=== PATIENT | female | born 1990 | race Caucasian/White ===

== ENCOUNTER → 2016-10-11 | Outpatient (CLI) | payer OTHER ==
[2016-10-12 06:47] LABS: Cardiolipin Ab IgG 13.5 GPL (<15); Cardiolipin Ab IgM 11.7 MPL (<12.5)
[2016-10-12 11:54] LABS: Protein C (Activity) 105 % (70 - 130)
[2016-10-13 13:34] LABS: Free Protein S Antigen 82 % (50 - 147)
[2016-10-13 13:56] LABS: MTHFR Genotyping(C677T/A1298C) Normal Genotype; Prothrombin 20210 G/A Mutation Normal Genotype
== END | disposition home or self-care (01) ==
LOC: LABWHC1 12:07
PROVIDERS: ATTEND Obstetrics & Gynecology
DX: N96 Recurrent pregnancy loss (principal)
CPT/HCPCS: 36415; 81240; 81241; 81291; 85300; 85303; 85306; 86147; 88230; 88262

== ENCOUNTER → 2017-07-17 | Outpatient (CLI) | payer OTHER ==
[2017-07-18 01:00] LABS: Varicella zoster IgG Interp NEGATIVE (NEGATIVE); Varicella zoster IgG Result <0.2 AI
[2017-07-18 01:32] LABS: Prolactin 8.2 ng/mL (2.8-29.2)
[2017-07-18 05:48] LABS: Varicella IgM Antibody 1.84 INDEX (<=0.90)
[2017-07-18 12:40] LABS: Anti-Mullerian Hormone 5.54 ng/mL (0.76 - 11.34)
== END | disposition home or self-care (01) ==
LOC: LABWHC1 15:29
PROVIDERS: ATTEND Obstetrics & Gynecology Reproductive Endocrinology
DX: Z01.812 Encounter for preprocedural laboratory examination (principal)
CPT/HCPCS: 36415; 83520; 84146; 84443; 86762; 86787; 86850; 86900; 86901

== ENCOUNTER 2017-10-13 06:32 | Emergency (ER) | payer OTHER ==
[2017-10-13 06:49] VITALS: RESP 18
[2017-10-13 07:19] LABS: Appearance,Urine Clear (Clear); Bacteria,Urine Rare /hpf; Bilirubin,Urine Negative (Negative); Blood,Urine Moderate (Negative); Color,Urine Yellow; Glucose,Urine (UA) Negative (Negative); Ketones,Urine Negative (Negative); Leukocyte Esterase,Urine Negative (Negative); Mucus,Urine Rare /hpf; Nitrite,Urine Negative (Negative); Protein,Urine Negative (Negative); RBC,Urine 46 /hpf (0-5); Specific Gravity,Urine 1.016 (1.001-1.035); Squamous Epithelial Cell,Urine 9 /hpf (0-4); Urobilinogen,Urine <2.0 mg/dL (<2.0); WBC,Urine 1 /hpf (0-5)
--- NOTE | 2017-10-13 08:18 | ED ---
Female Urogenital HPI - General Chief complaint: Vaginal Bleeding Stated complaint: Vaginal Bleeding 4 wks Preg Time Seen by Provider: 10/13/17 07:40 Source: patient, RN notes reviewed Mode of arrival: ambulatory Limitations: no limitations - History of Present Illness Initial comments: This a 27-year-old female with a prior history of miscarriage who states she started having vaginal bleeding this morning which started with some small amount of pink blood and ended with dark blood. She does have a prior history of miscarriage she states her last menstrual period was September 09 of this year. She did test +2 days ago she states for . She denies any dizziness headache nausea vomiting abdominal pain. No other complaints at this time. She is not aware what her blood type or Rh is. MD Complaint: vaginal bleeding Last Menstrual Period: 09/09/17 - Related Data Home Medications Medication Instructions Recorded Confirmed Albuterol Inhaler [Ventolin 1 - 2 puff INHALATION RT-Q6H PRN 08/14/15 10/13/17 Inhaler] Beclomethasone Dipropionate [Qvar 160 mcg INHALATION RT-BID 08/14/15 10/13/17 80 mcg/puff] Cetirizine HCl [Zyrtec] 10 mg PO DAILY 08/14/15 10/13/17 Acetaminophen [Tylenol] 500 mg PO Q4-6H PRN 10/29/15 10/13/17 Montelukast [Singulair] 10 mg PO DAILY 10/29/15 10/13/17 Baclofen 10 mg PO TID 12/04/15 10/13/17 ALPRAZolam [Xanax] 0.25 mg PO BID 10/13/17 10/13/17 Gabapentin [Neurontin] 300 mg PO TID 10/13/17 10/13/17 Allergies Allergy/AdvReac Type Severity Reaction Status Date / Time No Known Allergies Allergy Verified 10/13/17 06:49 Review of Systems ROS Statement: Those systems with pertinent positive or pertinent negative responses have been documented in the HPI. ROS Other: All systems not noted in ROS Statement are negative. Past Medical History Past Medical History: Fibromyalgia, Seizure Disorder Additional Past Medical History / Comment(s): chronic back pain, migraines, History of Any Multi-Drug Resistant Organisms: None Reported Past Surgical History: Section, Tonsillectomy Additional Past Surgical History / Comment(s): ACD 06/12/2017, fusion of c5c6 Past Psychological History: ADD/ADHD, Anxiety, Bipolar, Depression Smoking Status: Never smoker Past Alcohol Use History: Rare Past Drug Use History: None Reported General Exam - General Exam Comments Initial Comments: this a well-developed well-nourished awake alert oriented 3 female Limitations: no limitations General appearance: alert, in no apparent distress Head exam: Present: atraumatic, normocephalic, normal inspection Eye exam: Present: normal appearance, PERRL, EOMI. Absent: scleral icterus, conjunctival injection, periorbital swelling ENT exam: Present: normal exam, mucous membranes moist Neck exam: Present: normal inspection. Absent: tenderness, meningismus, lymphadenopathy Respiratory exam: Present: normal lung sounds bilaterally. Absent: respiratory distress, wheezes, rales, rhonchi, stridor Cardiovascular Exam: Present: regular rate, normal rhythm, normal heart sounds. Absent: systolic murmur, diastolic murmur, rubs, gallop, clicks GI/Abdominal exam: Present: soft, normal bowel sounds. Absent: distended, tenderness, guarding, rebound, rigid Extremities exam: Present: normal inspection, full ROM, normal capillary refill. Absent: tenderness, pedal edema, joint swelling, calf tenderness Back exam: Present: normal inspection Neurological exam: Present: alert, oriented X3, CN II-XII intact Psychiatric exam: Present: normal affect, normal mood Skin exam: Present: warm, dry, intact, normal color. Absent: rash Course Vital Signs 10/13/17 06:44 Temperature 98.8 F Pulse Rate 92 Respiratory 18 Rate Blood Pressure 104/66 O2 Sat by Pulse 100 Oximetry Medical Decision Making - Medical Decision Making I did discuss findings with the patient and her significant other. Patient does have a minimally elevated hCG number. At this time a pelvic exam is not indicated. Patient has had 3 prior miscarriages she has had 2 live births. We did discuss the findings she will follow-up with her doctor and 2-3 days for a repeat beta hCG she is in agreement with this. - Lab Data Lab Results 10/13/17 10/13/17 10/13/17 Range/Units 06:51 06:51 06:55 HCG, Quant 11.5 mIU/mL Urine Color Yellow Urine Appearance Clear (Clear) Urine pH 6.0 (5.0-8.0) Ur Specific [place] 1.016 (1.001-1.035) Urine Protein Negative (Negative) Urine Glucose (UA) Negative (Negative) Urine Ketones Negative (Negative) Urine Blood Moderate H (Negative) Urine Nitrite Negative (Negative) Urine Bilirubin Negative (Negative) Urine Urobilinogen <2.0 (<2.0) mg/dL Ur Leukocyte Esterase Negative (Negative) Urine RBC 46 H (0-5) /hpf Urine WBC 1 (0-5) /hpf Ur Squamous Epith Cells 9 H (0-4) /hpf Urine Bacteria Rare H (None) /hpf Urine Mucus Rare H (None) /hpf Blood Type O Positive Blood Type Recheck No Disposition Clinical Impression: Threatened , Vaginal bleeding Disposition: HOME SELF-CARE Condition: Good Instructions: Threatened Miscarriage (ED), First Trimester Vaginal Bleed (ED) Referrals: Jackelyn Gonsalez MD [Primary Care Provider] - 1-2 days
[2017-10-13 09:54] VITALS: BP 98/69; PULSE 80; TEMP 98.9
== END 2017-10-13 09:52 | disposition home or self-care (01) ==
LOC: EC 06:32
DX: O20.0 Threatened abortion (principal); O99.351 Diseases of the nervous system complicating pregnancy, first trimester; G40.909 Epilepsy, unspecified, not intractable, without status epilepticus; O99.89 Other specified diseases and conditions complicating pregnancy, childbirth and the puerperium; M79.7 Fibromyalgia; G89.29 Other chronic pain; O99.341 Other mental disorders complicating pregnancy, first trimester; F41.9 Anxiety disorder, unspecified; Z79.51 Long term (current) use of inhaled steroids; Z79.899 Other long term (current) drug therapy; Z98.890 Other specified postprocedural states; Z3A.01 Less than 8 weeks gestation of pregnancy
CPT/HCPCS: 36415; 81001; 84702; 86900; 86901; 99284

== ENCOUNTER 2017-10-14 10:47 | Emergency (ER) | payer OTHER ==
[2017-10-14 10:51] VITALS: BP 109/77; PULSE 90; RESP 15; TEMP 98.1
--- NOTE | 2017-10-14 11:05 | ED ---
General Adult HPI - General Chief complaint: Vaginal Bleeding Stated complaint: UTI Time Seen by Provider: 10/14/17 10:53 Source: patient, RN notes reviewed Mode of arrival: ambulatory Limitations: no limitations - History of Present Illness Initial comments: 27-year-old female presents for vaginal bleeding in . She was here for this yesterday. She went to [facility] today because she was having some burning with urination and they started her on antibiotic. They were concerned because she still is having bleeding in so they did not feels if they could evaluate her fully there so they sent her here. Her hCG from yesterday was 11.5. She has a prescription for repeat blood work tomorrow. She states she does not know why she is here she would like to go home. She's not having any changes from yesterday. She just came because [facility] told her that she was supposed to. She does not want any workup she states she'll follow-up with her [employer] she states she'll follow-up with the blood work anything changes she'll come back should like to go home. She denies any abdominal pain or cramping. She states the bleeding is light spotting.Patient denies any recent fever, chills, shortness of breath, chest pain, back pain, abdominal pain, nausea vomiting, numbness or tingling, hematuria, constipation or diarrhea, headaches or visual changes, or any other current symptoms. - Related Data Home Medications Medication Instructions Recorded Confirmed Pnv,Calcium 72/Iron/Folic Acid 1 tab PO DAILY 10/14/17 10/14/17 [ Plus Tablet] Allergies Allergy/AdvReac Type Severity Reaction Status Date / Time No Known Allergies Allergy Verified 10/14/17 10:57 Review of Systems ROS Statement: Those systems with pertinent positive or pertinent negative responses have been documented in the HPI. ROS Other: All systems not noted in ROS Statement are negative. Past Medical History Past Medical History: Fibromyalgia, Seizure Disorder Additional Past Medical History / Comment(s): chronic back pain, migraines, History of Any Multi-Drug Resistant Organisms: None Reported Past Surgical History: Section, Tonsillectomy Additional Past Surgical History / Comment(s): ACD 06/12/2017, fusion of c5c6 Past Psychological History: ADD/ADHD, Anxiety, Bipolar, Depression Smoking Status: Never smoker Past Alcohol Use History: Rare Past Drug Use History: None Reported General Exam Limitations: no limitations General appearance: alert, in no apparent distress Neck exam: Present: normal inspection. Absent: tenderness, meningismus, lymphadenopathy Respiratory exam: Present: normal lung sounds bilaterally. Absent: respiratory distress, wheezes, rales, rhonchi, stridor Cardiovascular Exam: Present: regular rate, normal rhythm, normal heart sounds. Absent: systolic murmur, diastolic murmur, rubs, gallop, clicks GI/Abdominal exam: Present: soft, normal bowel sounds. Absent: distended, tenderness, guarding, rebound, rigid Neurological exam: Present: alert, oriented X3 Psychiatric exam: Present: normal affect, normal mood Skin exam: Present: warm, dry, intact, normal color. Absent: rash Course Vital Signs 10/14/17 10:49 Temperature 98.1 F Pulse Rate 90 Respiratory 15 Rate Blood Pressure 109/77 O2 Sat by Pulse 100 Oximetry Medical Decision Making - Medical Decision Making 27-year-old female presents for vaginal bleeding in . We saw the patient yesterday with an hCG of 11.5 and she is positive Rh. At this time the patient is not requesting any workup. She is just sent here because [facility] told her to come. She had he has an antibiotic for UTI that she was diagnosed with [facility] today. At this time we will discharge patient home. We discussed continued follow-up with her doctor. We discussed return parameters all questions. Patient stated that she understood and she is agreement this plan. All questions have been answered. She will be discharged. Disposition Clinical Impression: Vaginal bleeding Disposition: HOME SELF-CARE Condition: Stable Instructions: Threatened Miscarriage (ED) Additional Instructions: Please use medication as discussed. Please follow up with family doctor if symptoms have not improved over the next two days. Please return to the emergency room if your symptoms increase or worsen or for any other concerns. Referrals: Jackelyn Gonsalez MD [Primary Care Provider] - 1-2 days Time of Disposition: 11:05
== END 2017-10-14 11:10 | disposition home or self-care (01) ==
LOC: EC 10:47
DX: O20.9 Hemorrhage in early pregnancy, unspecified (principal); Z79.899 Other long term (current) drug therapy; Z3A.00 Weeks of gestation of pregnancy not specified
CPT/HCPCS: 99283

== ENCOUNTER → 2017-10-15 | Outpatient (CLI) | payer OTHER | END | disposition home or self-care (01) | LOC: LABWHC1 08:28 | PROVIDERS: ATTEND Physician Assistant | DX: Z34.90 Encounter for supervision of normal pregnancy, unspecified, unspecified trimester (principal); Z3A.00 Weeks of gestation of pregnancy not specified | CPT/HCPCS: 36415; 84702 ==

== ENCOUNTER 2018-04-21 06:57 | Emergency (ER) | payer OTHER ==
--- NOTE | 2018-04-21 07:51 | ED ---
General Adult HPI - General Chief complaint: Abdominal Pain Stated complaint: abd pain, 7 wks preg Time Seen by Provider: 04/21/18 07:10 Source: patient, family, RN notes reviewed Mode of arrival: ambulatory Limitations: no limitations - History of Present Illness Initial comments: This is a 28-year-old female who presents emergency Department stating she is 7 weeks . Patient complains of suprapubic abdominal pain. Patient states she is on the right if she lays on her right but when she lays on her left it seems to switch over to the left side. Patient also was noticed a little bit of pressure when she tries to urinate. Patient denies any dysuria patient denies any hematuria. Patient denies any fever chills. Patient denies any vomiting or diarrhea. Patient states palpating her abdomen does not really cause much pain. Patient denies any back pain. Patient denies any vaginal bleeding or discharge. - Related Data Home Medications Medication Instructions Recorded Confirmed Baclofen [Lioresal] 10 mg PO TID 11/21/17 04/21/18 busPIRone HCL 5 mg PO BID 11/21/17 04/21/18 Allergies Allergy/AdvReac Type Severity Reaction Status Date / Time No Known Allergies Allergy Verified 04/21/18 07:12 Review of Systems ROS Statement: Those systems with pertinent positive or pertinent negative responses have been documented in the HPI. ROS Other: All systems not noted in ROS Statement are negative. Past Medical History Past Medical History: Fibromyalgia, Seizure Disorder Additional Past Medical History / Comment(s): chronic back pain, migraines, History of Any Multi-Drug Resistant Organisms: None Reported Past Surgical History: Back Surgery, Section, Tonsillectomy Additional Past Surgical History / Comment(s): ACD 06/12/2017, fusion of c5c6 Past Anesthesia/Blood Transfusion Reactions: No Reported Reaction Past Psychological History: ADD/ADHD, Anxiety, Bipolar, Depression Smoking Status: Never smoker Past Alcohol Use History: None Reported Past Drug Use History: None Reported - Past Family History Mother History Unknown: Yes Additional Family Medical History / Comment(s): PT ADOPTED General Exam - General Exam Comments Initial Comments: GENERAL: Patient is well-developed and well-nourished. Patient is nontoxic and well- hydrated and is in no acute distress. ENT: Neck is soft and supple. No significant lymphadenopathy is noted. Oropharynx is clear. Moist mucous membranes. Neck has full range of motion without eliciting any pain. EYES: The sclera were anicteric and conjunctiva were pink and moist. Extraocular movements were intact and pupils were equal round and reactive to light. Eyelids were unremarkable. PULMONARY: Unlabored respirations. Good breath sounds bilaterally. No audible rales rhonchi or wheezing was noted. CARDIOVASCULAR: There is a regular rate and rhythm without any murmurs gallops or rubs. ABDOMEN: Soft and nontender with normal bowel sounds. No palpable organomegaly was noted. There is no palpable pulsatile mass. SKIN: Skin is clear with no lesions or rashes and otherwise unremarkable. NEUROLOGIC: Patient is alert and oriented x3. Cranial nerves II through XII are grossly intact. Motor and sensory are also intact. Normal speech, volume and content. Symmetrical smile. MUSCULOSKELETAL: Normal extremities with adequate strength and full range of motion. No lower extremity swelling or edema. No calf tenderness. LYMPHATICS: No significant lymphadenopathy is noted PSYCHIATRIC: Normal psychiatric evaluation. Limitations: no limitations Course Vital Signs 04/21/18 04/21/18 04/21/18 07:08 09:46 10:10 Temperature 98.4 F 99.7 F H Pulse Rate 100 90 79 Respiratory 20 18 18 Rate Blood Pressure 108/73 99/67 98/61 O2 Sat by Pulse 99 98 99 Oximetry Medical Decision Making - Medical Decision Making Ultrasound showed a 7 week 1 day intrauterine - Lab Data Result diagrams: 04/21/18 07:58 04/21/18 07:58 Lab Results 04/21/18 04/21/18 04/21/18 Range/Units 07:58 07:58 07:58 WBC 6.3 (3.8-10.6) k/uL RBC 3.74 L (3.80-5.40) m/uL Hgb 12.3 (11.4-16.0) gm/dL Hct 35.4 (34.0-46.0) % MCV 94.7 (80.0-100.0) fL MCH 32.8 (25.0-35.0) pg MCHC 34.7 (31.0-37.0) g/dL RDW 12.4 (11.5-15.5) % Plt Count 278 (150-450) k/uL Neutrophils % 57 % Lymphocytes % 35 % Monocytes % 4 % Eosinophils % 2 % Basophils % 1 % Neutrophils # 3.6 (1.3-7.7) k/uL Lymphocytes # 2.2 (1.0-4.8) k/uL Monocytes # 0.2 (0-1.0) k/uL Eosinophils # 0.1 (0-0.7) k/uL Basophils # 0.0 (0-0.2) k/uL Sodium 138 (137-145) mmol/L Potassium 4.5 (3.5-5.1) mmol/L Chloride 104 (98-107) mmol/L Carbon Dioxide 26 (22-30) mmol/L Anion Gap 8 mmol/L BUN 8 (7-17) mg/dL Creatinine 0.59 (0.52-1.04) mg/dL Est GFR (CKD-EPI)AfAm >90 (>60 ml/min/1.73 sqM) Est GFR (CKD-EPI)NonAf >90 (>60 ml/min/1.73 sqM) Glucose 92 (74-99) mg/dL Calcium 9.3 (8.4-10.2) mg/dL Total Bilirubin 0.3 (0.2-1.3) mg/dL AST 16 (14-36) U/L ALT 21 (9-52) U/L Alkaline Phosphatase 58 (38-126) U/L Total Protein 6.8 (6.3-8.2) g/dL Albumin 3.9 (3.5-5.0) g/dL Amylase 40 (30-110) U/L Lipase 39 (23-300) U/L HCG, Quant 632909.0 mIU/mL Urine Color Yellow Urine Appearance Cloudy H (Clear) Urine pH 6.5 (5.0-8.0) Ur Specific [place] 1.017 (1.001-1.035) Urine Protein Trace H (Negative) Urine Glucose (UA) Negative (Negative) Urine Ketones Negative (Negative) Urine Blood Negative (Negative) Urine Nitrite Negative (Negative) Urine Bilirubin Negative (Negative) Urine Urobilinogen <2.0 (<2.0) mg/dL Ur Leukocyte Esterase Moderate H (Negative) Urine RBC 1 (0-5) /hpf Urine WBC 4 (0-5) /hpf Ur Squamous Epith Cells 9 H (0-4) /hpf Urine Bacteria Occasional H (None) /hpf Urine Mucus Rare H (None) /hpf Disposition Clinical Impression: Intrauterine Disposition: HOME SELF-CARE Condition: Good Instructions: (ED) Is patient prescribed a controlled substance at d/c from ED?: No Referrals: Jackelyn Gonsalez MD [Primary Care Provider] - 1-2 days Time of Disposition: 10:00
[2018-04-21 08:15] LABS: Basophils % (A) 1 %; Eosinophils # (A) 0.1 k/uL (0-0.7); Eosinophils % (A) 2 %; HCT 35.4 % (34.0-46.0); HGB 12.3 gm/dL (11.4-16.0); Lymphocytes # (A) 2.2 k/uL (1.0-4.8); Lymphocytes % (A) 35 %; MCH 32.8 pg (25.0-35.0); MCHC 34.7 g/dL (31.0-37.0); MCV 94.7 fL (80.0-100.0); Mean Platelet Volume 6.8; Monocytes # (A) 0.2 k/uL (0-1.0); Monocytes % (A) 4 %; Neutrophils # (A) 3.6 k/uL (1.3-7.7); Neutrophils % (A) 57 %; Platelet Count 278 k/uL (150-450); RBC 3.74 m/uL (3.80-5.40); RDW 12.4 % (11.5-15.5); WBC 6.3 k/uL (3.8-10.6)
[2018-04-21 08:22] LABS: Appearance,Urine Cloudy (Clear); Bacteria,Urine Occasional /hpf; Bilirubin,Urine Negative (Negative); Blood,Urine Negative (Negative); Color,Urine Yellow; Glucose,Urine (UA) Negative (Negative); Ketones,Urine Negative (Negative); Leukocyte Esterase,Urine Moderate (Negative); Mucus,Urine Rare /hpf; Nitrite,Urine Negative (Negative); PH, Urine 6.5 (5.0-8.0); Protein,Urine Trace (Negative); RBC,Urine 1 /hpf (0-5); Specific Gravity,Urine 1.017 (1.001-1.035); Squamous Epithelial Cell,Urine 9 /hpf (0-4); Urobilinogen,Urine <2.0 mg/dL (<2.0); WBC,Urine 4 /hpf (0-5)
[2018-04-21 08:31] LABS: ALT 21 U/L (9-52); AST 16 U/L (14-36); Albumin 3.9 g/dL (3.5-5.0); Alkaline Phosphatase 58 U/L (38-126); Amylase 40 U/L (30-110); Anion Gap 8 mmol/L; Blood Urea Nitrogen 8 mg/dL (7-17); Calcium 9.3 mg/dL (8.4-10.2); Carbon Dioxide 26 mmol/L (22-30); Chloride 104 mmol/L (98-107); Glucose 92 mg/dL (74-99); Lipase 39 U/L (23-300); Potassium 4.5 mmol/L (3.5-5.1); Sodium 138 mmol/L (137-145); Total Bilirubin 0.3 mg/dL (0.2-1.3); Total Protein 6.8 g/dL (6.3-8.2)
[2018-04-21 09:47] VITALS: RESP 18
--- NOTE | 2018-04-21 09:48 | US ---
EXAMINATION TYPE: Ultrasound OB <= 14 week fetus DATE OF EXAM: 11/20/17 COMPARISON: NONE CLINICAL HISTORY: 28-year-old female Pain. Pelvic pain worsening EXAM PERFORMED: OBTA, patient did not want TV approach FINDINGS: EXAM MEASUREMENTS: GESTATIONAL AGE / DATING Physician Established: Not yet established Dates by LMP: (7 weeks/1 days) EDC: 12/07/2018 Dates by First Scan: No previous this is first scan Dates by Current Scan for: (7 weeks/0 days) EDC: 12/08/2018 MATERNAL ANATOMY Uterus: 10.4 x 5.5 x 5.7cm Right Ovary: 3.0 x 2.6 x 2.3cm Left Ovary: 2.2 x 1.9 x 1.8cm Post CDS / Adnexa: wnl Presence of free fluid: no Presence of corpus luteal cyst: not seen Presence of subchorionic bleed: no GESTATION / SURVEY CRL: 0.9cm (7 weeks/0 days) MSD: wnl Yolk Sac (normal less than 6mm): 0.2cm Heart Rate: 142 bpm Rhythm: Normal IUP: Viable IUP Date of LMP: 03/02/2018 Beta HcG (if available): pending IMPRESSION: 1. Single live intrauterine with estimated gestational age of 7 weeks 1 day by LMP. Current ultrasound biometry is concordant (7 weeks 0 days). 2. Complete survey recommended at 18-20 weeks.
[2018-04-21 10:11] VITALS: BP 98/61; PULSE 79; TEMP 99.7
== END 2018-04-21 10:11 | disposition home or self-care (01) ==
LOC: EC 06:57
DX: O26.891 Other specified pregnancy related conditions, first trimester (principal); R10.31 Right lower quadrant pain; R10.32 Left lower quadrant pain; R39.89 Other symptoms and signs involving the genitourinary system; O99.351 Diseases of the nervous system complicating pregnancy, first trimester; G89.29 Other chronic pain; O99.341 Other mental disorders complicating pregnancy, first trimester; F41.9 Anxiety disorder, unspecified; F32.9 Major depressive disorder, single episode, unspecified; Z79.899 Other long term (current) drug therapy; Z98.890 Other specified postprocedural states; Z3A.01 Less than 8 weeks gestation of pregnancy
CPT/HCPCS: 36415; 76801; 80053; 81001; 82150; 83690; 84702; 85025; 99284

== ENCOUNTER 2018-05-26 09:46 | Emergency (ER) | payer OTHER ==
[2018-05-26] MEDS ORDERED: SODIUM CHLORIDE 0.9% 500 ML IV ONE (10:06)
[2018-05-26] MEDS ORDERED: ACETAMINOPHEN IV (For NPO) 1,000 MG in EMPTY BAG 1 BAG IVPB STA (10:15)
[2018-05-26 10:24] LABS: Basophils % (A) 0 %; Eosinophils # (A) 0.2 k/uL (0-0.7); Eosinophils % (A) 2 %; HCT 35.5 % (34.0-46.0); HGB 12.2 gm/dL (11.4-16.0); Lymphocytes # (A) 2.3 k/uL (1.0-4.8); Lymphocytes % (A) 32 %; MCH 32.8 pg (25.0-35.0); MCHC 34.4 g/dL (31.0-37.0); MCV 95.2 fL (80.0-100.0); Monocytes # (A) 0.2 k/uL (0-1.0); Monocytes % (A) 3 %; Neutrophils # (A) 4.2 k/uL (1.3-7.7); Neutrophils % (A) 60 %; Platelet Count 285 k/uL (150-450); RBC 3.73 m/uL (3.80-5.40); RDW 12.6 % (11.5-15.5)
--- NOTE | 2018-05-26 10:24 | ED ---
Abdominal Pain HPI - General Chief Complaint: Abdominal Pain Stated Complaint: Flank pain/12 wks Time Seen by Provider: 05/26/18 10:04 Source: patient Mode of arrival: ambulatory Limitations: no limitations - History of Present Illness Initial Comments: 28yo female who denies past medical history presenting today for chief complaint of left flank pain that radiates down towards her left groin. Patient states that 3:30 AM she began noticing the pain she states that it fluctuates in intensity with 10/10 at its peak. Patient describes as a sharp shooting pain. She states the pain is not constant and it comes in waves. She denies any abdominal pain including epigastric or lower abdominal pain/cramping , vaginal bleeding, vaginal discharge, chest pain, pain with deep inspiration, fever, chills, urgency, frequency, hematuria, diarrhea, constipation, cough, congestion, dyspnea or dyspnea on exertion. Pt does admit to some nausea. She took tylenol for pain mgmt however she states this did not help. Pt was concerned for a kidney stone and presented today for evaluation. Upon arrival pt appears well in not acute distress. VS WNL. Remainder of ROS (-). - Related Data Home Medications Medication Instructions Recorded Confirmed Baclofen [Lioresal] 10 mg PO TID 11/21/17 05/26/18 busPIRone HCL 5 mg PO BID 11/21/17 05/26/18 Allergies Allergy/AdvReac Type Severity Reaction Status Date / Time No Known Allergies Allergy Verified 05/26/18 09:51 Review of Systems ROS Statement: Those systems with pertinent positive or pertinent negative responses have been documented in the HPI. ROS Other: All systems not noted in ROS Statement are negative. Constitutional: Denies: fever, chills, night sweats ENT: Denies: ear pain, throat pain Respiratory: Denies: cough, dyspnea, wheezes, hemoptysis, stridor Cardiovascular: Denies: chest pain, dyspnea on exertion, edema Gastrointestinal: Reports: as per HPI, nausea. Denies: abdominal pain, vomiting , diarrhea, constipation, hematochezia Genitourinary: Denies: urgency, dysuria, frequency, hematuria, discharge Musculoskeletal: Denies: back pain Skin: Denies: rash Neurological: Denies: headache, weakness, numbness, paresthesias, confusion, abnormal gait Past Medical History Past Medical History: Fibromyalgia, Seizure Disorder Additional Past Medical History / Comment(s): chronic back pain, migraines, History of Any Multi-Drug Resistant Organisms: None Reported Past Surgical History: Back Surgery, Section, Tonsillectomy Additional Past Surgical History / Comment(s): ACD 06/12/2017, fusion of c5c6 Past Anesthesia/Blood Transfusion Reactions: No Reported Reaction Past Psychological History: ADD/ADHD, Anxiety, Bipolar, Depression Smoking Status: Never smoker Past Alcohol Use History: None Reported Past Drug Use History: None Reported - Past Family History Mother History Unknown: Yes Additional Family Medical History / Comment(s): PT ADOPTED General Exam - General Exam Comments Initial Comments: General: The patient is awake and alert, in no distress, and does not appear acutely ill. Eye: Pupils are equal, round and reactive to light, extra-ocular movements are intact. No nystagmus. There is normal conjunctiva bilaterally. No signs of icterus. Ears, nose, mouth and throat: There are moist mucous membranes and no oral lesions. Neck: The neck is supple, there is no tenderness or JVD. Cardiovascular: There is a regular rate and rhythm. No murmur, rub or gallop is appreciated. Respiratory: Lungs are clear to auscultation, respirations are non-labored, breath sounds are equal. No wheezes, stridor, rales, or rhonchi. Gastrointestinal: No noted diaphoresis, jaundice, pallor, protecting postures or squirming. Symmetrical pigmentation of abdomen without signs of inflammation, or striae. Umbilicus mildline, inverted without swelling. No dilated veins. No noted abdominal distention. No visible masses. No peristalsis, aortic pulsations, or ventral hernia. Bowel sounds audible in all 4 quadrants, unremarkable. No tenderness to light or deep palpation in all 4 quadrants, epigastric region. Liver edge, not palpable. Spleen edge, right and left kidney not palpable. Superior bladder margin non-tender. Special Testing: Negative [employer], Rovsing, McBurney, Yuri, cutaneous hyperesthesia negative bilaterally. Negative Heel Jar test. Left sided CVA tenderness. Digital rectal exam deferred. Negative linton turners or cullens sign Musculoskeletal: Normal ROM, no tenderness. Strength 5/5. Sensation intact. Radial pulses equal bilaterally 2+. Neurological: A&O x 3. CN II-XII intact, There are no obvious motor or sensory deficits. Coordination appears grossly intact. Speech is normal. Skin: Skin is warm and dry and no rashes or lesions are noted. Psychiatric: Cooperative, appropriate mood & affect, normal judgment. Limitations: no limitations Course Vital Signs 05/26/18 05/26/18 05/26/18 09:48 12:48 15:15 Temperature 98.5 F 98.1 F 98.7 F Pulse Rate 91 77 79 Respiratory 18 16 18 Rate Blood Pressure 110/73 106/65 98/66 O2 Sat by Pulse 98 100 99 Oximetry Medical Decision Making - Medical Decision Making Pt with left flank pain, 12 wks concerning for kidney stones. Pt appears comfortable upon exam, no signs of distress. Requested pain medication given 1,000mg IV tylenol. Pt stated that did not help and requested something more for pain. Pt given 1mg morphine, she stated it helped for a few minutes. Abdominal exam unremarkable, no signs or symptoms worrisome for acute abdomen or peritoneal irritation. heart tones 165 and transvaginal ultrasound obtained revealing viable IUP, no signs of ectopic . Renal US obtained revealed .3cm echogenic focus in the superior pole of the left kidney may represent a small angiomyolipoma there are no convincing evidence of obstructive uropathy. UA as noted above, pt denies urinary symptoms and it was not a clean catch. Case discussed in detail Dr. Tineo, at this time we feel patient pain may be related to the small echogenic focus of left kidney-no signs of hemorrhage on US or UA. The finding of the left kidney was discussed in detail with patient and we recommended further f/u and evaluatin with primary provider. At this time we feel pt is stable for discharge with pain management using tylenol and f/u with both OBGYN, Dr. Poe and PCP in the next 1-2 days. Pt has an appointment with Dr. Poe tomorrow. Pt agrees with plan and states that she is ready for d/c. PT was discharged in stable condition after discussing all findings with Dr. Tineo. - Lab Data Result diagrams: 05/26/18 10:00 05/26/18 10:00 Lab Results 05/26/18 05/26/18 05/26/18 Range/Units 10:00 10:00 10:15 WBC 7.0 (3.8-10.6) k/uL RBC 3.73 L (3.80-5.40) m/uL Hgb 12.2 (11.4-16.0) gm/dL Hct 35.5 (34.0-46.0) % MCV 95.2 (80.0-100.0) fL MCH 32.8 (25.0-35.0) pg MCHC 34.4 (31.0-37.0) g/dL RDW 12.6 (11.5-15.5) % Plt Count 285 (150-450) k/uL Neutrophils % 60 % Lymphocytes % 32 % Monocytes % 3 % Eosinophils % 2 % Basophils % 0 % Neutrophils # 4.2 (1.3-7.7) k/uL Lymphocytes # 2.3 (1.0-4.8) k/uL Monocytes # 0.2 (0-1.0) k/uL Eosinophils # 0.2 (0-0.7) k/uL Basophils # 0.0 (0-0.2) k/uL Sodium 138 (137-145) mmol/L Potassium 4.4 (3.5-5.1) mmol/L Chloride 106 (98-107) mmol/L Carbon Dioxide 23 (22-30) mmol/L Anion Gap 9 mmol/L BUN 5 L (7-17) mg/dL Creatinine 0.52 (0.52-1.04) mg/dL Est GFR (CKD-EPI)AfAm >90 (>60 ml/min/1.73 sqM) Est GFR (CKD-EPI)NonAf >90 (>60 ml/min/1.73 sqM) Glucose 85 (74-99) mg/dL Calcium 9.3 (8.4-10.2) mg/dL Total Bilirubin 0.3 (0.2-1.3) mg/dL AST 18 (14-36) U/L ALT 19 (9-52) U/L Alkaline Phosphatase 63 (38-126) U/L Total Protein 6.9 (6.3-8.2) g/dL Albumin 3.8 (3.5-5.0) g/dL Urine Color Light Yellow Urine Appearance Cloudy H (Clear) Urine pH 7.5 (5.0-8.0) Ur Specific [place] 1.008 (1.001-1.035) Urine Protein Negative (Negative) Urine Glucose (UA) Negative (Negative) Urine Ketones Negative (Negative) Urine Blood Negative (Negative) Urine Nitrite Negative (Negative) Urine Bilirubin Negative (Negative) Urine Urobilinogen <2.0 (<2.0) mg/dL Ur Leukocyte Esterase Moderate H (Negative) Urine RBC 1 (0-5) /hpf Urine WBC 3 (0-5) /hpf Ur Squamous Epith Cells 7 H (0-4) /hpf Urine Bacteria Many H (None) /hpf Urine Mucus Rare H (None) /hpf Disposition Clinical Impression: Left flank pain Disposition: HOME SELF-CARE Condition: Good Instructions: Flank Pain (ED) Additional Instructions: Please use over the counter tylenol for pain medication as discussed. 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 Please follow-up with Dr. Poe as scheduled tomorrow. Please return to emergency room if the symptoms increase or worsen or for any other concerns, as discussed. Is patient prescribed a controlled substance at d/c from ED?: No Referrals: Jackelyn Gonsalez MD [Primary Care Provider] - 1-2 days Ileana Poe DO [Doctor of Osteopathic Medicine] - 1-2 days Time of Disposition: 15:08
[2018-05-26 10:42] LABS: ALT 19 U/L (9-52); AST 18 U/L (14-36); Albumin 3.8 g/dL (3.5-5.0); Alkaline Phosphatase 63 U/L (38-126); Anion Gap 9 mmol/L; Blood Urea Nitrogen 5 mg/dL (7-17); Calcium 9.3 mg/dL (8.4-10.2); Carbon Dioxide 23 mmol/L (22-30); Chloride 106 mmol/L (98-107); Glucose 85 mg/dL (74-99); Potassium 4.4 mmol/L (3.5-5.1); Sodium 138 mmol/L (137-145); Total Bilirubin 0.3 mg/dL (0.2-1.3); Total Protein 6.9 g/dL (6.3-8.2)
[2018-05-26 10:50] LABS: Appearance,Urine Cloudy (Clear); Bacteria,Urine Many /hpf; Bilirubin,Urine Negative (Negative); Blood,Urine Negative (Negative); Color,Urine Light Yellow; Glucose,Urine (UA) Negative (Negative); Ketones,Urine Negative (Negative); Leukocyte Esterase,Urine Moderate (Negative); Mucus,Urine Rare /hpf; Nitrite,Urine Negative (Negative); PH, Urine 7.5 (5.0-8.0); Protein,Urine Negative (Negative); RBC,Urine 1 /hpf (0-5); Specific Gravity,Urine 1.008 (1.001-1.035); Squamous Epithelial Cell,Urine 7 /hpf (0-4); Urobilinogen,Urine <2.0 mg/dL (<2.0); WBC,Urine 3 /hpf (0-5)
[2018-05-26] MEDS ORDERED: MORPHINE SULFATE 2 MG/ML SYRINGE IVP STA (13:35)
--- NOTE | 2018-05-26 13:49 | US ---
EXAMINATION TYPE: US renals and bladder DATE OF EXAM: 05/26/2018 COMPARISON: CT 2013 CLINICAL HISTORY: Pain. Left flank pain x 1 day, patient is 12 weeks , exam done portable in ER, patient voided prior to study. EXAM MEASUREMENTS: Right Kidney: 10.0 x 5.8 x 4.6 cm Left Kidney: 9.8 x 4.4 x 5.5 cm Right Kidney: dilated renal pelvis Left Kidney: dilated renal pelvis, 0.3cm echogenic focus superior pole Bladder: wnl Bilateral Jets seen: no There is mild fullness of both renal pelves. Echogenic focus in the upper pole on the left is nonshad owing and may represent a small angiomyolipoma. IMPRESSION: DILATED BILATERAL RENAL PELVES LIKELY SECONDARY TO . THERE IS NO CONVINCING EVIDENCE OF OBST RUCTIVE UROPATHY.
--- NOTE | 2018-05-26 14:47 | US ---
EXAMINATION TYPE: Transabdominal DATE OF EXAM: 11/20/17 COMPARISON: US 2017 CLINICAL HISTORY: pain. Left flank pain x 1 day, 7, para 2, miscarriage 4 EXAM PERFORMED: Transabdominal (TA) EXAM MEASUREMENTS: GESTATIONAL AGE / DATING Physician Established: (12 weeks/1 days) EDC: 12/07/2018 Dates by LMP: (12 weeks/1 days) EDC: 12/07/2018 Dates by First Scan: (12 weeks/1 days) EDC: 12/08/2018 Dates by Current Scan for: (12 weeks/4 days) EDC: 12/04/2018 MATERNAL ANATOMY Uterus: 11.7 x 7.2 x 9.5cm, anteverted Right Ovary: 2.9 x 1.5 x 1.7cm Left Ovary: 3.1 x 1.3 x 2.0cm Post CDS / Adnexa: wnl Presence of free fluid: no Presence of corpus luteal cyst: not seen Presence of subchorionic bleed: no GESTATION / SURVEY CRL: 6.1cm (12 weeks/4 days) Yolk Sac (normal less than 6mm): not seen Heart Rate: 168 bpm Rhythm: Normal IUP: Viable IUP Nuchal Translucency 10-14wks (normal less than 3mm): not evaluated due to position Date of LMP: 03/02/2018 Beta HcG (if available): Not available at time of exam. Viable single IUP measuring 12 weeks 4 days with a heart rate of 168bpm and an estimated delivery arnold e of 12/04/2018. IMPRESSION: No complicating process seen.
[2018-05-26 15:18] VITALS: BP 98/66; PULSE 79; RESP 18; TEMP 98.7
== END 2018-05-26 15:15 | disposition home or self-care (01) ==
LOC: EC 09:46
DX: O99.89 Other specified diseases and conditions complicating pregnancy, childbirth and the puerperium (principal); R10.32 Left lower quadrant pain; R11.0 Nausea; O99.351 Diseases of the nervous system complicating pregnancy, first trimester; G89.29 Other chronic pain; O99.341 Other mental disorders complicating pregnancy, first trimester; F41.9 Anxiety disorder, unspecified; Z79.899 Other long term (current) drug therapy; Z98.890 Other specified postprocedural states; Z3A.12 12 weeks gestation of pregnancy
CPT/HCPCS: 36415; 80053; 85025; 81001; 76801; 76770; 99284; 96374; 96375; 96361; J2270; J0131

== ENCOUNTER 2018-06-15 09:12 | Emergency (ER) | payer OTHER ==
[2018-06-15 09:30] VITALS: RESP 18; TEMP 98.3
--- NOTE | 2018-06-15 09:44 | ED ---
Lower Extremity Injury HPI - General Chief Complaint: Extremity Injury, Lower Stated Complaint: Pain in leg 15 wks Time Seen by Provider: 06/15/18 09:31 Source: patient, RN notes reviewed, old records reviewed Mode of arrival: ambulatory Limitations: no limitations - History of Present Illness Initial Comments: This Patient is a 28-year-old, female, presents emergency department today with treatment of left leg pain. Patient reports that she woke up this morning complaining of left leg pain. She reports it starts from the knee radiates around towards her calf. She denies any redness or swelling. It started this morning. Patient also complains of suprapubic abdominal pain and pelvic pain. She is currently 15 weeks . Her PR MANAGER is Dr. Poe. Patient states that she is had no abnormal vaginal discharge or bleeding. Patient denies any other symptoms. - Related Data Home Medications Medication Instructions Recorded Confirmed Baclofen [Lioresal] 10 mg PO TID 11/21/17 05/26/18 busPIRone HCL 5 mg PO BID 11/21/17 05/26/18 Allergies Allergy/AdvReac Type Severity Reaction Status Date / Time No Known Allergies Allergy Verified 06/15/18 09:25 Review of Systems ROS Statement: Those systems with pertinent positive or pertinent negative responses have been documented in the HPI. ROS Other: All systems not noted in ROS Statement are negative. Past Medical History Past Medical History: Fibromyalgia, Seizure Disorder Additional Past Medical History / Comment(s): chronic back pain, migraines, History of Any Multi-Drug Resistant Organisms: None Reported Past Surgical History: Section, Tonsillectomy Additional Past Surgical History / Comment(s): ACD 06/12/2017, fusion of c5c6 Past Anesthesia/Blood Transfusion Reactions: No Reported Reaction Past Psychological History: ADD/ADHD, Anxiety, Bipolar, Depression Smoking Status: Never smoker Past Alcohol Use History: None Reported Past Drug Use History: None Reported - Past Family History Mother History Unknown: Yes Additional Family Medical History / Comment(s): PT ADOPTED General Exam - General Exam Comments Initial Comments: 28-year-old female. Alert and oriented. Patient appears in no acute distress. Limitations: no limitations General appearance: alert, in no apparent distress Head exam: Present: atraumatic, normocephalic, normal inspection Eye exam: Present: normal appearance, PERRL, EOMI. Absent: scleral icterus, conjunctival injection, periorbital swelling ENT exam: Present: normal exam, mucous membranes moist Neck exam: Present: normal inspection. Absent: tenderness, meningismus, lymphadenopathy Respiratory exam: Present: normal lung sounds bilaterally. Absent: respiratory distress, wheezes, rales, rhonchi, stridor Cardiovascular Exam: Present: regular rate, normal rhythm, normal heart sounds. Absent: systolic murmur, diastolic murmur, rubs, gallop, clicks GI/Abdominal exam: Present: soft, tenderness (Suprapubic tenderness), normal bowel sounds. Absent: distended, guarding, rebound, rigid Extremities exam: Present: normal inspection, full ROM, normal capillary refill. Absent: tenderness, pedal edema, joint swelling, calf tenderness Back exam: Present: normal inspection Neurological exam: Present: alert, oriented X3, CN II-XII intact Psychiatric exam: Present: normal affect, normal mood Skin exam: Present: warm, dry, intact, normal color. Absent: rash Course Vital Signs 06/15/18 06/15/18 09:26 11:31 Temperature 98.3 F 98.3 F Pulse Rate 103 H 96 Respiratory 18 18 Rate Blood Pressure 110/73 100/71 O2 Sat by Pulse 99 95 Oximetry Medical Decision Making - Medical Decision Making 28 rolled female since returned today with an initial complaint of left leg pain. She also reports having some lower pelvic pain. His been going on for the past few weeks. At this time Patient has no bleeding. No abnormal discharge. She was seen and evaluated for kidney issues with the past 2 weeks. She is following up with her. At this time her main complaint initially is left leg pain. There is no evidence of deformity redness or swelling over the lower extremity. She is very concerned about a blood clot. Clinically he was not concerned that she was adamant. We did complete a Doppler ultrasound which was negative for DVT. We did also do is check a urine sample which is no signs of infection. She has normal ultrasound of the fetus measuring 16 weeks. At this time Patient informed of all results. Discussed that her leg pain is likely related to strain. She can follow-up with her OB and primary care physician. Patient agrees treatment plan will comply. Return parameters were discussed. - Lab Data Lab Results 06/15/18 Range/Units 10:04 Urine Color Yellow Urine Appearance Cloudy H (Clear) Urine pH 6.0 (5.0-8.0) Ur Specific [place] 1.015 (1.001-1.035) Urine Protein Negative (Negative) Urine Glucose (UA) Negative (Negative) Urine Ketones Negative (Negative) Urine Blood Negative (Negative) Urine Nitrite Negative (Negative) Urine Bilirubin Negative (Negative) Urine Urobilinogen <2.0 (<2.0) mg/dL Ur Leukocyte Esterase Small H (Negative) Urine WBC 3 (0-5) /hpf Ur Squamous Epith Cells 7 H (0-4) /hpf Urine Bacteria Moderate H (None) /hpf Urine Mucus Rare H (None) /hpf - Radiology Data Radiology results: report reviewed Doppler ultrasound was negative for any acute process and left lower extremity. OB ultrasound shows viable IUP 16 weeks. Heart rate of 154 bpm. Disposition Clinical Impression: Leg pain, left, 16 weeks gestation of Disposition: HOME SELF-CARE Condition: Good Instructions: Knee Sprain (ED) Additional Instructions: Patient has follow up with primary care provider. Return to emergency department if any alarming signs or symptoms occur. Is patient prescribed a controlled substance at d/c from ED?: No Referrals: Jackelyn Gonsalez MD [Primary Care Provider] - 1-2 days Time of Disposition: 12:20
[2018-06-15 10:28] LABS: Appearance,Urine Cloudy (Clear); Bacteria,Urine Moderate /hpf; Bilirubin,Urine Negative (Negative); Blood,Urine Negative (Negative); Color,Urine Yellow; Glucose,Urine (UA) Negative (Negative); Ketones,Urine Negative (Negative); Leukocyte Esterase,Urine Small (Negative); Mucus,Urine Rare /hpf; Nitrite,Urine Negative (Negative); Protein,Urine Negative (Negative); Specific Gravity,Urine 1.015 (1.001-1.035); Squamous Epithelial Cell,Urine 7 /hpf (0-4); Urobilinogen,Urine <2.0 mg/dL (<2.0); WBC,Urine 3 /hpf (0-5)
--- NOTE | 2018-06-15 11:18 | US ---
EXAMINATION TYPE: US venous doppler duplex LE LT DATE OF EXAM: 06/15/2018 10:55 AM COMPARISON: NONE CLINICAL HISTORY: Pain. SIDE PERFORMED: Left TECHNIQUE: The lower extremity deep venous system is examined utilizing real time linear array sonog renetta with graded compression, doppler sonography and color-flow sonography. VESSELS IMAGED: External Iliac Vein (EIV) Common Femoral Vein Deep Femoral Vein Greater Saphenous Vein * Femoral Vein Popliteal Vein Small Saphenous Vein * Proximal Calf Veins (* superficial vessels) Left Leg: Negative for DVT No popliteal fossa lesion is seen. IMPRESSION: THIS EXAMINATION IS NEGATIVE FOR DVT IN THE LEFT LEG.
[2018-06-15 11:32] VITALS: BP 100/71; PULSE 96
--- NOTE | 2018-06-15 12:16 | US ---
EXAMINATION TYPE: US OB >= 14 wk fetus DATE OF EXAM: 06/15/2018 COMPARISON: None CLINICAL HISTORY: Pain TECHNIQUE: GESTATIONAL AGE / DATING Physician Established: (15 weeks/0 days) EDC: 12/07/2018 Dates by LMP: (15 weeks/0 days) EDC: 12/07/2018 Dates by First Scan: (14 weeks/6 days) EDC: 12/11/2018 Dates by Current Scan: (16 weeks/1 days) EDC: 11/29/2018 Beta HCG (if available): Not available at this time SURVEY IUP: Single PLACENTA: Anterior PREVIA: No Previa NALLELY: 12 cm Normal CERVICAL LENGTH (transabdominal: norm > 3.0cm): 3.5 cm BIOMETRY PRESENTATION: Vertex LIE: Longitudinal BPD: 3.2 cm 16weeks / 0 days HC: 12.2 cm 16weeks / 1 days AC: 10.1 cm 16weeks / 1 days FL: 2.1 cm 16weeks / 1 days ESTIMATED WEIGHT IN GRAMS: 146.1 grams ESTIMATED WEIGHT IN LBS/OZ: 0 lbs. 5 oz. WEIGHT PERCENTAGE BASED ON ESTABLISHED DATES: >97% HC/AC: 1.2 (1.1 - 1.3) FL/AC: 64.5 HEART RATE: 154 bpm RHYTHM: Normal IMPRESSION: VIABLE INTRAUTERINE GESTATION WITH A GESTATIONAL AGE OF 16 WEEKS 1 DAY +/- 7 DAYS. ESTIMATED DATE OF CONFINEMENT BASED ON THIS EXAMINATION IS 11/29/2018.
== END 2018-06-15 12:45 | disposition home or self-care (01) ==
LOC: EC 09:12
DX: O99.89 Other specified diseases and conditions complicating pregnancy, childbirth and the puerperium (principal); M79.605 Pain in left leg; R10.2 Pelvic and perineal pain; M79.7 Fibromyalgia; O99.342 Other mental disorders complicating pregnancy, second trimester; F31.9 Bipolar disorder, unspecified; F41.9 Anxiety disorder, unspecified; F90.9 Attention-deficit hyperactivity disorder, unspecified type; Z3A.16 16 weeks gestation of pregnancy; Z79.899 Other long term (current) drug therapy
CPT/HCPCS: 76805; 81001; 99284

== ENCOUNTER 2018-08-20 00:01 | Outpatient (CLI) | payer OTHER ==
[2018-08-20 00:30] VITALS: BP 113/79; PULSE 96; RESP 15; TEMP 98.1
[2018-08-20 00:40] LABS: Appearance,Urine Clear (Clear); Bacteria,Urine Occasional /hpf; Bilirubin,Urine Negative (Negative); Blood,Urine Negative (Negative); Color,Urine Light Yellow; Glucose,Urine (UA) Negative (Negative); Ketones,Urine Negative (Negative); Leukocyte Esterase,Urine Small (Negative); Nitrite,Urine Negative (Negative); PH, Urine 6.5 (5.0-8.0); Protein,Urine Negative (Negative); RBC,Urine 1 /hpf (0-5); Specific Gravity,Urine 1.003 (1.001-1.035); Squamous Epithelial Cell,Urine 3 /hpf (0-4); Urobilinogen,Urine <2.0 mg/dL (<2.0); WBC,Urine 3 /hpf (0-5)
--- NOTE | 2018-08-21 20:10 | P.MSEPDOC ---
Presenting Problems - Arrival Data Date of Arrival on Unit: 08/20/18 Time of Arrival on Unit: 00:01 Mode of Transport: Ambulatory - Complaint OB-Reason for Admission/Chief Complaint: Pain Comment: Patient complains of right sided flank pain since 1800. Medical History - Information : 7 Para: 2 Term: 2 : 0 Abortions: Spontaneous or Elective: 4 Number of Living Children: 2 - Gestational Age Gestational Age by AIDA (wks/days): 24 Weeks and 3 Days Review of Systems - Review of Systems Constitutional: No problems Breast: No problems ENT: No problems Cardiovascular: No problems Respiratory: No problems Gastrointestinal: No problems Genitourinary: No problems Musculoskeletal: No problems Neurological: No problems Skin: No problems Vital Signs - Temperature Temperature: 98.1 F Temperature Source: Oral - Pulse Pulse Oximetery Pulse Rate: 96 Pulse Assessment Method: Pulse Oximetry - Respirations Respiratory Rate: 15 Oxygen Delivery Method: Room Air O2 Sat by Pulse Oximetry: 98 - Blood Pressure Right Arm Blood Pressure: 113/79 Blood Pressure Mean: 90 Blood Pressure Source: Automatic Cuff Medical Screen Scoring (Pre) - Cervical Exam Dilation: Exam Deferred Effacement: Exam Deferred Membranes: Intact - Uterine Contractions Frequency: N/A Duration: N/A Intensity: N/A - Maternal Vital Signs Maternal Temperature: N/A Maternal Blood Pressure: N/A Signs of Preeclampsia: N/A Maternal Respirations: N/A - Pain Assessment Pain Location and Character: Right, Back Pain Scale Used: Numeric (1 - 10) Pain Intensity: 8 Pain Management Goal: 2 Pain Description: *Acute, Aching Pain Radiation Location: none Pain Frequency: Intermittent Pain Duration: 6 Pain Duration Units: Hours Pain Behavior: Facial Grimacing Pain Aggravating Factors: None - Maternal Trauma Maternal Trauma: N/A - Assessment Baseline FHR: 150 Heart Rate - NICHD Category: Category I (Normal) = 0 NST: Reactive Position: N/A Station: N/A - Total Score Total Score (Pre): 0 - Level of Risk Level of Risk: Low (0-5) Medical Screen Scoring (Post) - Cervical Exam Dilation: Exam Deferred Effacement: Exam Deferred Membranes: Intact - Uterine Contractions Frequency: N/A Duration: N/A Intensity: N/A - Maternal Vital Signs Maternal Temperature: N/A Maternal Blood Pressure: N/A Signs of Preeclampsia: N/A Maternal Respirations: N/A - Pain Assessment Pain Scale Used: Numeric (1 - 10) Pain Intensity: 8 Pain Management Goal: 2 Pain Description: *Acute Pain Frequency: Intermittent Pain Duration Units: Minutes - Maternal Trauma Maternal Trauma: N/A - Assessment Heart Rate: 150 Heart Rate - NICHD Category: Category I (Normal) = 0 NST: Reactive Position: N/A Station: N/A - Total Score Total Score (Post): 0 - Post Treatment Level of Risk Post Treatment Level of Risk: Low (0-5) Physician Notification (Post) - Physician Notified Physician Notified Date: 08/20/18 Physician Notified Time: 00:54 Physician/Practitioner Notified:: Dr Kruse New Order Received: Yes Disposition - Disposition OB Disposition: Discharge to home Discharge Date: 08/20/18 Discharge Time: 01:10 I agree with the RN Medical Screening Exam: Yes Risk & Benefit of care provided described in d/c instruction: Yes Diagnosis: LOW BACK PAIN
== END 2018-08-20 01:11 | disposition home or self-care (01) ==
LOC: FBPOP 00:01
PROVIDERS: ATTEND Obstetrics & Gynecology
DX: O99.89 Other specified diseases and conditions complicating pregnancy, childbirth and the puerperium (principal); M54.5 Low back pain; Z3A.24 24 weeks gestation of pregnancy
CPT/HCPCS: 81001; 87086; G0463; 99213

== ENCOUNTER 2018-09-27 13:24 | Outpatient (CLI) | payer OTHER ==
[2018-09-27 14:31] VITALS: BP 110/72; PULSE 87; RESP 18; TEMP 97.8
--- NOTE | 2018-10-09 20:57 | P.MSEPDOC ---
Presenting Problems - Arrival Data Date of Arrival on Unit: 09/27/18 Time of Arrival on Unit: 13:30 Mode of Transport: Ambulatory - Complaint OB-Reason for Admission/Chief Complaint: Headache Medical History - Information : 7 Para: 2 Term: 2 : 0 Abortions: Spontaneous or Elective: 4 Number of Living Children: 2 - Gestational Age Gestational Age by AIDA (wks/days): 29 Weeks and 6 Days Review of Systems - Review of Systems Constitutional: No problems Breast: No problems ENT: No problems Cardiovascular: No problems Respiratory: No problems Gastrointestinal: No problems Genitourinary: No problems Musculoskeletal: No problems Neurological: No problems Skin: No problems Vital Signs - Temperature Temperature: 97.8 F Temperature Source: Temporal Artery Scan - Pulse Right Brachial Pulse Rate: 87 Pulse Assessment Method: Automatic Cuff - Respirations Respiratory Rate: 18 Oxygen Delivery Method: Room Air - Blood Pressure Right Arm Blood Pressure: 110/72 Blood Pressure Mean: 84 Blood Pressure Source: Automatic Cuff Medical Screen Scoring (Pre) - Cervical Exam Dilation: Exam Deferred Effacement: Exam Deferred Membranes: Intact - Uterine Contractions Frequency: N/A Duration: N/A Intensity: N/A - Maternal Vital Signs Maternal Temperature: N/A Maternal Blood Pressure: N/A Signs of Preeclampsia: N/A Maternal Respirations: N/A - Pain Assessment Pain Location and Character: Head Pain Scale Used: Numeric (1 - 10) Pain Intensity: 10 Pain Description: Stabbing Pain Frequency: Constant Pain Duration: 6 Pain Duration Units: Hours Pain Behavior: None Exhibited - Maternal Trauma Maternal Trauma: N/A - Assessment Baseline FHR: 140 Heart Rate - NICHD Category: Category I (Normal) = 0 NST: Reactive Position: N/A Station: N/A - Total Score Total Score (Pre): 0 - Level of Risk Level of Risk: Low (0-5) Medical Screen Scoring (Post) - Cervical Exam Dilation: Exam Deferred Effacement: Exam Deferred Membranes: Intact - Uterine Contractions Frequency: N/A Duration: N/A Intensity: N/A - Maternal Vital Signs Maternal Temperature: N/A Maternal Blood Pressure: N/A Signs of Preeclampsia: Headache = 1 Maternal Respirations: N/A - Pain Assessment Pain Location and Character: Head Pain Scale Used: Numeric (1 - 10) Pain Intensity: 10 - Maternal Trauma Maternal Trauma: N/A - Assessment Heart Rate: 140 Heart Rate - NICHD Category: Category I (Normal) = 0 NST: Reactive Position: N/A Station: N/A - Total Score Total Score (Post): 1 - Post Treatment Level of Risk Post Treatment Level of Risk: Low (0-5) Physician Notification (Post) - Physician Notified Physician Notified Date: 09/27/18 Physician Notified Time: 14:15 Physician/Practitioner Notified:: Dr Poe Spoke With: Dr Poe New Order Received: Yes - Notification Comment Comment: Patient may be seen in the ER for eval of her migraine Disposition - Disposition OB Disposition: Triage, Transfer to other dept./facility, Written follow up instructions reviewed Transferred to:: ER Discharge Date: 09/27/18 Discharge Time: 14:35 I agree with the RN Medical Screening Exam: Yes Risk & Benefit of care provided described in d/c instruction: Yes Diagnosis: MIGRAINE W/O AURA, NOT INTRACTABLE, W/O STATUS MIGRAINOSUS
== END 2018-09-27 14:33 | disposition home or self-care (01) ==
LOC: FBPOP 13:24
PROVIDERS: ATTEND Obstetrics & Gynecology
DX: O99.353 Diseases of the nervous system complicating pregnancy, third trimester (principal); G43.909 Migraine, unspecified, not intractable, without status migrainosus; Z3A.29 29 weeks gestation of pregnancy
CPT/HCPCS: 59025; G0463; 99213

== ENCOUNTER 2018-11-11 17:26 | Outpatient (CLI) | payer OTHER ==
[2018-11-11 17:58] VITALS: BP 111/77; PULSE 113; RESP 16; TEMP 97.3
--- NOTE | 2018-11-12 07:12 | P.MSEPDOC ---
Presenting Problems - Arrival Data Date of Arrival on Unit: 11/11/18 Time of Arrival on Unit: 17:20 Mode of Transport: Ambulatory - Complaint OB-Reason for Admission/Chief Complaint: Rule Out PROM Medical History - Information : 7 Para: 2 - Gestational Age Gestational Age by AIDA (wks/days): 36 Weeks and 2 Days Review of Systems - Review of Systems Constitutional: No problems Breast: No problems ENT: No problems Cardiovascular: No problems Respiratory: No problems Gastrointestinal: No problems Genitourinary: No problems Musculoskeletal: No problems Neurological: No problems Skin: No problems Vital Signs - Temperature Temperature: 97.3 F Temperature Source: Temporal Artery Scan - Pulse Right Sitting Brachial Pulse Rate: 113 Pulse Assessment Method: Pulse Oximetry - Respirations Respiratory Rate: 16 Oxygen Delivery Method: Room Air O2 Sat by Pulse Oximetry: 97 - Blood Pressure Right Arm Sitting Blood Pressure: 111/77 Blood Pressure Mean: 88 Blood Pressure Source: Automatic Cuff Medical Screen Scoring (Pre) - Cervical Exam Dilation: 1-3 cm = 1 Effacement: Exam Deferred Membranes: Intact - Uterine Contractions Frequency: > or = 36 weeks =2 Duration: > 40 seconds = 2 Intensity: N/A - Maternal Vital Signs Maternal Temperature: N/A Maternal Blood Pressure: N/A Signs of Preeclampsia: N/A Maternal Respirations: N/A - Pain Assessment Pain Location and Character: Abdomen Pain Scale Used: Numeric (1 - 10) Pain Intensity: 7 Pain Management Goal: 0 Pain Description: Cramping Pain Radiation Location: 0 Pain Frequency: Intermittent Pain Duration: 6 Pain Duration Units: Hours Pain Behavior: None Exhibited Pain Aggravating Factors: None - Maternal Trauma Maternal Trauma: N/A - Assessment Baseline FHR: 150 Heart Rate - NICHD Category: Category I (Normal) = 0 NST: Reactive Position: N/A Station: N/A - Total Score Total Score (Pre): 5 - Level of Risk Level of Risk: Low (0-5) Physician Notification (Pre) - Physician Notified Physician Notified Date: 11/11/18 Physician Notified Time: 17:45 Physician/Practitioner Notifed:: Dr Kruse Spoke With: Dr Kruse New Order Received: Yes - Notification Comment Comment: discharge pt home at this time Disposition - Disposition OB Disposition: Discharge to home Discharge Date: 03/25/19 Discharge Time: 18:00 I agree with the RN Medical Screening Exam: Yes Risk & Benefit of care provided described in d/c instruction: Yes Diagnosis: FALSE LABOR BEFORE 37 COMPLETED WEEKS OF GEST, THIRD TRI
== END 2018-11-11 18:00 | disposition home or self-care (01) ==
LOC: FBPOP 17:26
PROVIDERS: ATTEND Obstetrics & Gynecology
DX: O47.03 False labor before 37 completed weeks of gestation, third trimester (principal); Z3A.36 36 weeks gestation of pregnancy
CPT/HCPCS: 59025; 84112; G0463; 99213

== ENCOUNTER 2018-11-13 21:16 | Observation (INO) | payer OTHER ==
[2018-11-13 21:35] VITALS: BP 119/81; PULSE 109; RESP 15; TEMP 96.7
--- NOTE | 2018-11-13 23:13 | P.HPOB ---
History of Present Illness H&P Date: 11/13/18 Chief Complaint: Contractions, previous section, prolonged accelera tions This patient is a 28-year-old 7 para 2 female estimated date of confinement 12/07/2018 estimated gestational age 36-4/7 weeks gestation who presented to labor and delivery with complaints of regular painful contractions. Patient's care is per Dr. Poe. It appears she had a previous section with her second baby secondary to failed induction of labor. Patient's also had a previous with a cleft palate and cleft lip. Patient also apparently has a history of preeclampsia with her first 2 pregnancies. Patient was here approximately 2 days ago and thought her water was broken however was not. She re-presents tonight with complaints of contractions. Cervix is still the same 1 cm dilated however heart tones show a baseline of 120 which she's had several prolonged accelerations to 170. There are no concerning decelerations at this time. Review of Systems Genitourinary: Reports Menstruation: Reports amenorrhea Past Medical History Past Medical History: Fibromyalgia, Seizure Disorder Additional Past Medical History / Comment(s): chronic back pain, migraines, History of Any Multi-Drug Resistant Organisms: None Reported Past Surgical History: Section, Tonsillectomy Additional Past Surgical History / Comment(s): ACD 06/12/2017, fusion of c5c6 Past Anesthesia/Blood Transfusion Reactions: No Reported Reaction Past Psychological History: Anxiety, Bipolar Smoking Status: Never smoker - Past Family History Mother History Unknown: Yes Additional Family Medical History / Comment(s): PT ADOPTED Medications and Allergies Home Medications Medication Instructions Recorded Confirmed Type Pnv,Calcium 72/Iron/Folic Acid 1 each PO DAILY 08/20/18 11/13/18 History [ Plus Tablet] Allergies Allergy/AdvReac Type Severity Reaction Status Date / Time No Known Allergies Allergy Verified 11/13/18 21:29 Exam Vital Signs Temp Pulse Resp BP 11/13/18 21:29 96.7 F L 109 H 15 119/81 Intake and Output 11/13/18 11/13/18 11/14/18 14:59 22:59 06:59 Other: Weight 78.925 kg - OBG Physical Exam Cervix: Cervix is 1 cm and thick per the RN. Cervix: no lesion, no discharge Uterus: enlarged Results blood work shows she is O positive, rubella nonimmune, RPR nonreactive, hepatitis B negative, HIV is nonreactive. Group B strep was negative. Most recent ultrasound shows a 6 lbs. 15 oz. baby vertex presentation with a normal NALLELY. Assessment and Plan Assessment: This is a 28-year-old 7 para 2 female 36-5/7 weeks gestation who presented to labor and delivery with complaints of contractions. Patient has not felt to be in labor. She has had a previous section and apparently does plan on vaginal after section at this time. baseline is 120s with multiple prolonged accelerations sometimes as high as 170. Although at this time I am not concerned about heart tones due to the previous section and several episodes of prolonged accelerations I'm going to recommend admission for observation. Patient is understanding of this and agrees to admission for observation. Patient does have a history of preeclampsia 2 although her blood pressures are normal at this time. Patient also has a history of previous baby was cleft palate. Plan is IV hydration and admission for continuous monitoring and observation. (1) 36 to 37 weeks gestation of Current Visit: Yes Status: Acute Code(s): LSS1022 - SNOMED Code(s): 690096894 (2) Previous delivery affecting Current Visit: Yes Status: Acute Code(s): O34.219 - MATERNAL CARE FOR UNSP TYPE SCAR FROM PREVIOUS DEL SNOMED Code(s): 958556835
[2018-11-13] MEDS: LACTATED RINGERS 1,000 ML IV SCH (23:20)
[2018-11-13 23:53] VITALS: BMI 31.8
[2018-11-14] MEDS: LACTATED RINGERS 1,000 ML IV SCH (02:24)
--- NOTE | 2018-11-14 08:10 | P.DS ---
Providers Date of admission: 11/13/18 22:49 Expected date of discharge: 11/14/18 Attending physician: Ileana Poe Primary care physician: Stated None - Discharge Diagnosis(es) (1) 36 to 37 weeks gestation of Current Visit: Yes Status: Acute (2) Previous delivery affecting Current Visit: Yes Status: Acute Hospital Course: Pt was admitted with contractions. heart tones are 120 with moderate variability and accelerations, no decelerations. This is a category 1 tracing the whole night. Her contractions have spaced out to a few an hour and her cervix is still 1/80/-2. I advised her that since she is I will not augment her labor or induce her. I don't think she is in labor at this time and will discharge her home to follow up with me next week. Plan - Discharge Summary New Discharge Prescriptions: No Action Pnv,Calcium 72/Iron/Folic Acid [ Plus Tablet] 1 each PO DAILY Discharge Medication List Pnv,Calcium 72/Iron/Folic Acid [ Plus Tablet] 1 each PO DAILY 08/20/18 [History] Follow up Appointment(s)/Referral(s): Ileana Poe DO [Doctor of Osteopathic Medicine] - 11/19/18 Discharge Disposition: HOME SELF-CARE
--- NOTE | 2018-11-15 06:19 | P.MSEPDOC ---
Presenting Problems - Arrival Data Date of Arrival on Unit: 11/13/18 Time of Arrival on Unit: 21:00 Mode of Transport: Ambulatory - Complaint OB-Reason for Admission/Chief Complaint: Possible Onset of Labor Comment: Pt states that contractions are every 2-3 mins since 8pm tonight Medical History - Information : 7 Para: 2 Term: 2 : 0 Abortions: Spontaneous or Elective: 4 Number of Living Children: 2 - Gestational Age Gestational Age by AIDA (wks/days): 36 Weeks and 5 Days Review of Systems - Review of Systems Constitutional: No problems Breast: No problems ENT: No problems Cardiovascular: No problems Respiratory: No problems Gastrointestinal: No problems Genitourinary: No problems Musculoskeletal: No problems Neurological: No problems Skin: No problems Vital Signs - Temperature Temperature: 96.7 F Temperature Source: Temporal Artery Scan - Pulse Pulse Oximetery Pulse Rate: 109 Pulse Assessment Method: Automatic Cuff - Respirations Respiratory Rate: 15 Oxygen Delivery Method: Room Air - Blood Pressure Right Arm Blood Pressure: 119/81 Blood Pressure Mean: 93 Blood Pressure Source: Automatic Cuff Medical Screen Scoring (Pre) - Cervical Exam Dilation: 1-3 cm = 1 Effacement: More than 50% = 2 Membranes: Intact - Uterine Contractions Frequency: > 5 minutes apart = 1 Duration: N/A Intensity: N/A - Maternal Vital Signs Maternal Temperature: N/A Maternal Blood Pressure: N/A Signs of Preeclampsia: N/A Maternal Respirations: N/A - Pain Assessment Pain Location and Character: Abdomen Pain Scale Used: Numeric (1 - 10) Pain Intensity: 10 Pain Management Goal: 2 Pain Description: *Acute, Cramping Pain Radiation Location: pelvic area Pain Frequency: Intermittent Pain Duration: 1 Pain Duration Units: Hours Pain Behavior: Facial Grimacing, Fidgeting Pain Aggravating Factors: Contractions - Maternal Trauma Maternal Trauma: N/A - Assessment Baseline FHR: 125 Heart Rate - NICHD Category: Category I (Normal) = 0 NST: Reactive Position: N/A Station: N/A - Total Score Total Score (Pre): 4 - Level of Risk Level of Risk: Low (0-5) Physician Notification (Pre) - Physician Notified Physician Notified Date: 11/13/18 Physician Notified Time: 21:20 Physician/Practitioner Notifed:: Dr Kruse New Order Received: Yes - Notification Comment Comment: Orders to observe for an hour and recheck cervix Disposition - Disposition Discharge Date: 11/14/18 Discharge Time: 08:10 I agree with the RN Medical Screening Exam: Yes Risk & Benefit of care provided described in d/c instruction: Yes Diagnosis: FALSE LABOR BEFORE 37 COMPLETED WEEKS OF GEST, THIRD TRI
== END 2018-11-14 08:10 | disposition home or self-care (01) ==
LOC: FBPOP 21:16 → 4FBP 22:49
PROVIDERS: ADMIT Obstetrics & Gynecology; ATTEND Obstetrics & Gynecology
DX: O47.03 False labor before 37 completed weeks of gestation, third trimester (principal); Z3A.36 36 weeks gestation of pregnancy; O99.343 Other mental disorders complicating pregnancy, third trimester; O99.353 Diseases of the nervous system complicating pregnancy, third trimester; O99.89 Other specified diseases and conditions complicating pregnancy, childbirth and the puerperium; F31.9 Bipolar disorder, unspecified; F41.9 Anxiety disorder, unspecified; G40.909 Epilepsy, unspecified, not intractable, without status epilepticus; M79.7 Fibromyalgia; M54.9 Dorsalgia, unspecified; G89.29 Other chronic pain
CPT/HCPCS: 59025; 96360; 96361; G0378 ×2; G0463; 99213

== ENCOUNTER 2018-11-22 19:55 | Inpatient (IN) | payer OTHER ==
[2018-11-22] MEDS ORDERED: OXYTOCIN 10 UNIT/ML 1 ML VIAL IM PRN (22:46)
[2018-11-22] MEDS ORDERED: LIDOCAINE 0.5% (PF) 5 MG/ML (50 ML SDV) SQ PRN (22:46)
[2018-11-22] MEDS ORDERED: METHYLERGONOVINE 0.2 MG/ML 1 ML AMP IM PRN (22:46)
[2018-11-22] MEDS ORDERED: CARBOPROST TROMETHAMINE 250 MCG/ML 1 ML AMP IM PRN (22:46)
[2018-11-22] MEDS ORDERED: TERBUTALINE 1 MG/ML VIAL SQ PRN (22:46)
[2018-11-22 23:05] LABS: Basophils % (A) 0 %; Eosinophils # (A) 0.2 k/uL (0-0.7); Eosinophils % (A) 2 %; HCT 33.8 % (34.0-46.0); HGB 11.9 gm/dL (11.4-16.0); Lymphocytes # (A) 1.9 k/uL (1.0-4.8); Lymphocytes % (A) 23 %; MCH 32.4 pg (25.0-35.0); MCHC 35.1 g/dL (31.0-37.0); MCV 92.4 fL (80.0-100.0); Mean Platelet Volume 9.6; Monocytes # (A) 0.5 k/uL (0-1.0); Monocytes % (A) 6 %; Neutrophils # (A) 5.5 k/uL (1.3-7.7); Neutrophils % (A) 68 %; Platelet Count 217 k/uL (150-450); RBC 3.66 m/uL (3.80-5.40); RDW 15.4 % (11.5-15.5); WBC 8.1 k/uL (3.8-10.6)
[2018-11-22 23:21] VITALS: BMI 32.1
[2018-11-23] MEDS ORDERED: fentaNYL (PF) 50 MCG/ML 5 ML AMP ONE (03:38)
[2018-11-23] MEDS ORDERED: SODIUM CHLORIDE 0.9% 100 ML BAG ONE (03:38)
[2018-11-23] MEDS ORDERED: ROPIVACAINE 5MG/ML 20ML VIAL ONE (03:38)
[2018-11-23] MEDS ORDERED: AMPICILLIN 2,000 MG in SODIUM CHLORIDE 0.9% 100 ML IVPB STA (08:00)
[2018-11-23] MEDS: LACTATED RINGERS 1,000 ML IV SCH ×5 (09:02→21:32)
[2018-11-23] MEDS: OXYTOCIN 30 UNITS/500 ML NS 30 UNIT in SALINE 1 500ML.BAG IV SCH (09:03)
[2018-11-23] MEDS ORDERED: ceFAZolin IN SWFI 2 GM/20 ML SYRINGE IVP ONE (11:01)
[2018-11-23] MEDS ORDERED: CITRIC ACID-SODIUM CITRATE 15 ML CUP PO ONE ×2 (11:01→11:02)
[2018-11-23] MEDS ORDERED: ONDANSETRON 4 MG/2 ML VIAL ONE ×2 (11:49)
[2018-11-23] MEDS ORDERED: DEXAMETHASONE SOD PHOS (MDV) 100 MG/10 ML VIAL ONE ×2 (11:49)
[2018-11-23] MEDS ORDERED: KETOROLAC 30 MG/ML 1 ML VIAL ONE ×2 (11:49)
[2018-11-23] MEDS ORDERED: NALBUPHINE 10 MG/ML (1 ML AMP) ONE ×2 (11:49)
[2018-11-23] MEDS ORDERED: OXYTOCIN 10 UNIT/ML 1 ML VIAL ONE ×2 (11:49)
[2018-11-23] MEDS ORDERED: ePHEDrine SULFATE/0.9% NACL/PF 50 MG/5 ML SYRINGE IV ONE ×2 (11:49)
[2018-11-23] MEDS ORDERED: MORPHINE SULFATE (PF) 0.3 MG/0.3 ML SYR ONE ×2 (11:49)
[2018-11-23] MEDS ORDERED: AMPICILLIN 1,000 MG in SODIUM CHLORIDE 0.9% 50 ML IVPB SCH (11:58)
[2018-11-23] MEDS ORDERED: METOCLOPRAMIDE 5 MG/ML 2 ML VIAL IVP PRN (12:41)
[2018-11-23] MEDS ORDERED: ACETAMINOPHEN TAB 325 MG TAB PO PRN (12:41)
[2018-11-23] MEDS ORDERED: diphenhydrAMINE 25 MG CAP PO PRN (12:41)
[2018-11-23] MEDS ORDERED: diphenhydrAMINE 50 MG CAP PO PRN (12:41)
[2018-11-23] MEDS ORDERED: SIMETHICONE 80 MG CHEWABLE PO PRN (12:41)
[2018-11-23] MEDS ORDERED: ONDANSETRON 4 MG/2 ML VIAL IVP PRN (12:41)
[2018-11-23] MEDS ORDERED: NALOXONE 0.4 MG/ML 1 ML VIAL IV PRN (12:41)
[2018-11-23] MEDS ORDERED: ZOLPIDEM 5 MG TAB PO PRN (12:41)
[2018-11-23] MEDS ORDERED: diphenhydrAMINE 50 MG/ML 1 ML VIAL IVP PRN ×2 (12:41)
[2018-11-23] MEDS ORDERED: LANOLIN CREAM 5 GM TUBE TOPICAL PRN (12:41)
[2018-11-23] MEDS ORDERED: OXYTOCIN 20 UNITS/1000 ML NS 1,000 ML IV SCH (12:45)
[2018-11-23] MEDS: KETOROLAC 30 MG/ML 1 ML VIAL IVP PRN ×2 (18:39→23:34)
[2018-11-23] MEDS: SENNOSIDES-DOCUSATE SODIUM 1 EACH TAB PO SCH (21:31)
--- NOTE | 2018-11-23 23:21 | P.HPOB ---
History of Present Illness H&P Date: 11/23/18 Chief Complaint: SROM 28-year-old presented at 38 weeks with spontaneous rupture membranes. Her cervix is 1 cm dilated, 70% effaced, and -2 station. She was not guevara. heart tones 130 with moderate variability and accelerations, reactive. Category 1 tracing. Review of Systems All systems: negative Constitutional: Denies chills, Denies fever Eyes: denies blurred vision, denies pain Ears, nose, mouth and throat: Denies headache, Denies sore throat Cardiovascular: Denies chest pain, Denies shortness of breath Respiratory: Denies cough Gastrointestinal: Denies abdominal pain, Denies diarrhea, Denies nausea, Denies vomiting Genitourinary: Denies dysuria, Denies hematuria Musculoskeletal: Denies myalgias Integumentary: Denies pruritus, Denies rash Neurological: Denies numbness, Denies weakness Psychiatric: Denies anxiety, Denies depression Endocrine: Denies fatigue, Denies weight change Past Medical History Past Medical History: Fibromyalgia, Seizure Disorder, Sleep Apnea/CPAP/BIPAP Additional Past Medical History / Comment(s): chronic back pain, migraines,. Obstetric history: First was a vaginal delivery she did have preecla mpsia with that . Second was a section, she did have preeclampsia with that as well. She then went on to have 4 spontaneous abortions. This is her seventh and she's had care with me since first trimester. Blood type is O+, antibody was negative, rubella nonimmune, RPR nonreactive, hepatitis B negative, HIV nonreactive. GBS negative. History of Any Multi-Drug Resistant Organisms: None Reported Past Surgical History: Section, Tonsillectomy Additional Past Surgical History / Comment(s): ACD 06/12/2017, fusion of c5c6 Past Anesthesia/Blood Transfusion Reactions: No Reported Reaction Past Psychological History: Anxiety, Bipolar, Depression Smoking Status: Never smoker Past Alcohol Use History: None Reported Past Drug Use History: None Reported - Past Family History Mother History Unknown: Yes Additional Family Medical History / Comment(s): PT ADOPTED Medications and Allergies Home Medications Medication Instructions Recorded Confirmed Type Pnv,Calcium 72/Iron/Folic Acid 1 each PO DAILY 08/20/18 11/22/18 History [ Plus Tablet] Allergies Allergy/AdvReac Type Severity Reaction Status Date / Time No Known Allergies Allergy Verified 11/22/18 22:03 Exam Osteopathic Statement: *. No significant issues noted on an osteopathic structural exam other than those noted in the History and Physical/Consult. Vital Signs Temp Pulse Resp BP Pulse Ox 11/23/18 20:00 98.6 F 83 16 98/52 11/23/18 16:00 98.1 F 90 16 110/65 95 11/23/18 14:40 97.5 F L 85 18 112/68 96 11/23/18 14:10 98.9 F 85 18 108/64 95 11/23/18 13:40 98.1 F 79 18 102/57 97 11/23/18 13:25 98.3 F 86 16 103/51 94 L 11/23/18 13:10 98.2 F 90 16 106/62 95 11/23/18 12:55 98.7 F 106 H 16 107/57 96 11/23/18 12:40 98.0 F 119 H 16 115/63 97 Intake and Output 11/23/18 11/23/18 11/24/18 14:59 22:59 06:59 Output Total 600 1800 Balance -600 -1800 Output: Urine 600 1200 Uretheral (Malone) 600 Estimated Blood Loss 600 Other: Voiding Method Indwelling Catheter Heart: Regular rate and rhythm Lungs: Clear to auscultation bilaterally Abdomen: Soft, nontender Extremities: Negative Homans sign Results Result Diagrams: 11/22/18 22:45 Assessment and Plan (1) Spontaneous rupture of membranes Current Visit: Yes Status: Acute Code(s): [id number] - SNOMED Code(s): 733256173 (2) Previous section Current Visit: Yes Status: Acute Code(s): Z98.891 - HISTORY OF UTERINE SCAR FROM PREVIOUS SURGERY SNOMED Code(s): 266910915 Plan: 1. The patient has planned a vaginal after . We talked extensively in the office about this and again no including all the risks and benefits. 2. Expectant management and Pitocin augmentation if necessary. 3. Anticipate vaginal after .
--- NOTE | 2018-11-23 23:31 | P.OP ---
Date of Procedure: 11/23/18 Preoperative Diagnosis: 1. at 38 weeks 2. Previous section 3. Arrest of dilation Postoperative Diagnosis: 1. at 38 weeks 2. Previous section 3. Arrest of dilation Procedure(s) Performed: Repeat low transverse Anesthesia: spinal Surgeon: Ileana Poe Termite Technician #1: Guera Alexander Estimated Blood Loss (ml): 600 IV fluids (ml): 700 Urine output (ml): 200 Pathology: other (Placenta) Condition: stable Disposition: floor Indications for Procedure: 28-year-old presented at 38 weeks with spontaneous rupture membranes at 2100 on 11/22/2018. Her cervix is 1 cm dilated, 70% effaced, -2 station. She is guevara but not feeling them. heart tones 140 with moderate variability, reactive, category 1 tracing. After 3 hours of being ruptured she did not make any cervical change and Pitocin augmentation was started. She dilated through the night and was 3-4 cm and she got an epidural was not terribly comfortable with this epidural. Her cervix was 7 cm dilated at 9:00 in the morning on 11/23/2018. Despite continued adequate contractions, the baby did not descend from -2 station and her cervix swelled from 80% to 60% effaced. She also started to have increased bloody show. The patient was in a lot of discomfort despite the epidural as well and the decision was made for section after informed consent was obtained. Operative Findings: Viable female, Apgars 8, 9, weight 7 lbs. 10 oz. Normal uterus, tubes, ovaries. Description of Procedure: Patient was taken to the operating room where the epidural was pulled and spinal anesthesia was placed and then found be adequate. She was prepped and draped in normal sterile fashion in dorsal supine position with a leftward tilt. Pfannenstiel skin incision was made the scalpel and carried through to the underlying layer of fascia with the scalpel. Fascia was incised in midline and carried bilaterally with the Talley scissors. The superior aspect of the fascial incision was grasped with Magalis clamps elevated and the underlying rectus muscles dissected off with the Talley's. Attention was then turned to inferior aspect of same incision which in a similar fashion was grasped tented up and the underlying rectus muscles dissected off with the Talley's. The rectus muscles were the midline and the peritoneum was identified tented up and entered sharply with the scalpel. The incision was extended superiorly and inferiorly with good visualization of the bladder. The bladder blade was inserted and the vesicouterine peritoneum was incised the Metzenbaums then carried bilaterally and bladder flap created digitally. A low transverse incision was then made on the uterus with the scalpel. This was carried bilat erally and digital manner. Infant's head delivered atraumatically, nuchal cord 1 easily reduced, nose and mouth bulb suctioned, cord clamped and cut, handed off to waiting nurses. Apgars 8,9, weight 7 lbs. 10oz. Placenta delivered manually, intact with three-vessel cord. The uterus is exteriorized and cleared of all clots and debris. The uterine incision was closed with 0 Vicryl in a running locked fashion. Second layer of the same sutures used in imbricating fashion to obtain excellent hemostasis. Both ovaries and tubes appeared normal. The uterus was placed back into the abdomen. The peritoneum was reapproximated using 2-0 Vicryl in a running fashion. The fascia was reapproximated using 0 Vicryl in a running fashion. The subcutaneous tissues closed with 3-0 Vicryl running fashion. The skin was closed bola. Patient tolerated the procedure well, sponge and instrument counts were correct times 2 and she was taken to the recovery room in stable condition.
--- NOTE | 2018-11-23 23:41 | P.MSEPDOC ---
Presenting Problems - Arrival Data Date of Arrival on Unit: 11/22/18 Time of Arrival on Unit: 23:20 Mode of Transport: Ambulatory - Complaint OB-Reason for Admission/Chief Complaint: Rule Out PROM Medical History - Information : 7 Para: 2 Term: 2 : 0 Abortions: Spontaneous or Elective: 4 Number of Living Children: 2 - Gestational Age Gestational Age by AIDA (wks/days): 38 Weeks and 0 Days Review of Systems - Review of Systems Constitutional: No problems Breast: No problems ENT: No problems Cardiovascular: No problems Respiratory: No problems Gastrointestinal: No problems Genitourinary: No problems Musculoskeletal: No problems Neurological: No problems Skin: No problems Vital Signs - Temperature Temperature: 98.6 F Temperature Source: Oral - Pulse Supine Pulse Rate: 83 Pulse Assessment Method: Automatic Cuff - Respirations Respiratory Rate: 16 - Blood Pressure Sitting Blood Pressure: 98/52 Blood Pressure Mean: 67 Blood Pressure Source: Automatic Cuff Medical Screen Scoring (Pre) - Cervical Exam Dilation: 1-3 cm = 1 Effacement: More than 50% = 2 Membranes: Ruptured = 3 - Uterine Contractions Frequency: N/A - Maternal Vital Signs Maternal Temperature: N/A - Pain Assessment Pain Scale Used: Numeric (1 - 10) Pain Intensity: 0 Pain Management Goal: 0 - Assessment Baseline FHR: 140 Heart Rate - NICHD Category: Category I (Normal) = 0 NST: Reactive - Total Score Total Score (Pre): 6 - Level of Risk Level of Risk: Medium (6-9) Physician Notification (Pre) - Physician Notified Physician Notified Date: 11/23/18 Physician Notified Time: 23:00 Physician/Practitioner Notifed:: DR WAN New Order Received: Yes - Notification Comment Comment: ADMIT Disposition - Disposition OB Disposition: Admit Discharge Date: 11/22/18 Discharge Time: 23:00 I agree with the RN Medical Screening Exam: Yes Risk & Benefit of care provided described in d/c instruction: Yes Diagnosis: ENCOUNTER FOR FULL-TERM UNCOMPLICATED DELIVERY
[2018-11-24] MEDS: LACTATED RINGERS 1,000 ML IV SCH ×4 (03:54→23:38)
[2018-11-24] MEDS: OXYTOCIN 30 UNITS/500 ML NS 30 UNIT in SALINE 1 500ML.BAG IV SCH ×2 (03:54→23:39)
[2018-11-24 07:34] LABS: Basophils % (A) 0 %; Eosinophils # (A) 0.1 k/uL (0-0.7); Eosinophils % (A) 1 %; HCT 28.4 % (34.0-46.0); Lymphocytes # (A) 1.5 k/uL (1.0-4.8); Lymphocytes % (A) 13 %; MCH 33.3 pg (25.0-35.0); MCHC 35.2 g/dL (31.0-37.0); MCV 94.4 fL (80.0-100.0); Monocytes # (A) 0.6 k/uL (0-1.0); Monocytes % (A) 5 %; Neutrophils # (A) 8.8 k/uL (1.3-7.7); Neutrophils % (A) 79 %; Platelet Count 189 k/uL (150-450); RBC 3.01 m/uL (3.80-5.40); RDW 14.4 % (11.5-15.5); WBC 11.1 k/uL (3.8-10.6)
[2018-11-24] MEDS: SENNOSIDES-DOCUSATE SODIUM 1 EACH TAB PO SCH ×2 (08:04→22:06)
[2018-11-24] MEDS: HYDROcodone/APAP 7.5-325MG 1 EACH TAB PO PRN ×3 (08:04→22:06)
--- NOTE | 2018-11-24 08:28 | P.PNOBGPC ---
Subjective - Subjective Principal diagnosis: Status post repeat low transverse postop day #1 Interval history: Patient seen and examined. Denies nausea, vomiting, chest pain, shortness of breath or calf pain. Patient reports: Reports appetite normal, Reports voiding normally, Reports pain well controlled, Reports ambulating normally [place]: doing well Objective - Vital Signs Latest vital signs: Vital Signs Temp Pulse Resp BP Pulse Ox 11/24/18 04:00 97.4 F L 85 14 93/64 11/24/18 00:00 97.5 F L 88 16 98/66 97 11/23/18 23:40 98.6 F 83 16 98/52 11/23/18 20:00 98.6 F 83 16 98/52 11/23/18 16:00 98.1 F 90 16 110/65 95 11/23/18 14:40 97.5 F L 85 18 112/68 96 11/23/18 14:10 98.9 F 85 18 108/64 95 11/23/18 13:40 98.1 F 79 18 102/57 97 11/23/18 13:25 98.3 F 86 16 103/51 94 L 11/23/18 13:10 98.2 F 90 16 106/62 95 11/23/18 12:55 98.7 F 106 H 16 107/57 96 11/23/18 12:40 98.0 F 119 H 16 115/63 97 Intake and Output 11/23/18 11/24/18 11/24/18 22:59 06:59 14:59 Output Total 1800 900 Balance -1800 -900 Output: Urine 1200 900 Uretheral ([place]) 600 Estimated Blood Loss 600 Other: Voiding Method Indwelling Catheter # Voids 2 - Exam Lungs: bilateral: normal Chest: Normal S1, Normal S2 Extremities: Present: normal Abdomen: Present: normal appearance, soft. Absent: distention, tenderness Incision: Present: normal, dry, intact Uterus: Present: normal, firm - Labs Labs: Abnormal Lab Results - Last 24 Hours (Table) 11/24/18 Range/Units 06:38 WBC 11.1 H (3.8-10.6) k/uL RBC 3.01 L (3.80-5.40) m/uL Hgb 10.0 L D (11.4-16.0) gm/dL Hct 28.4 L (34.0-46.0) % Neutrophils # 8.8 H (1.3-7.7) k/uL Assessment and Plan (1) Spontaneous rupture of membranes Current Visit: Yes Status: Resolved Code(s): [id number] - SNOMED Code(s): 919783765 (2) Previous section Current Visit: Yes Status: Resolved Code(s): Z98.891 - HISTORY OF UTERINE SCAR FROM PREVIOUS SURGERY SNOMED Code(s): 823117016 (3) Status post repeat low transverse section Current Visit: Yes Status: Acute Code(s): Z98.891 - HISTORY OF UTERINE SCAR FROM PREVIOUS SURGERY SNOMED Code(s): 648666480 Plan: 1. Increase ambulation 2. Regular diet 3. Continue postoperative care
[2018-11-24 08:43] VITALS: RESP 16
[2018-11-24] MEDS: KETOROLAC 30 MG/ML 1 ML VIAL IVP PRN (10:05)
[2018-11-24] MEDS ORDERED: DIPH,PERTUS(ACELL)TETVAC-LF 0.5 ML VIAL IM ONE (18:00)
[2018-11-24] MEDS ORDERED: INFLUENZA VACCINE (6 MOS+) 60 MCG/0.5 ML SYRINGE IM ONE (18:02)
[2018-11-24] MEDS ORDERED: MEASLES-MUMPS-RUBELLA VACC/PF 12,500 UNIT/0.5 ML VIAL SQ ONE (18:07)
[2018-11-24] MEDS: IBUPROFEN 600 MG TAB PO PRN (18:56)
[2018-11-25] MEDS: IBUPROFEN 600 MG TAB PO PRN ×2 (03:35→10:14)
[2018-11-25] MEDS: HYDROcodone/APAP 7.5-325MG 1 EACH TAB PO PRN ×2 (05:52→12:15)
[2018-11-25] MEDS: SENNOSIDES-DOCUSATE SODIUM 1 EACH TAB PO SCH (08:05)
--- NOTE | 2018-11-25 08:23 | P.DS ---
Providers Date of admission: 11/22/18 22:17 Expected date of discharge: 11/25/18 Attending physician: Ileana Poe Primary care physician: Stated None - Discharge Diagnosis(es) (1) Spontaneous rupture of membranes Current Visit: Yes Status: Resolved (2) Previous section Current Visit: Yes Status: Resolved (3) Status post repeat low transverse section Current Visit: Yes Status: Acute Hospital Course: Patient presented with spontaneous rupture membranes. After Pitocin augmentation and arrest of dilation, she underwent a repeat low transverse C- section. Her post operative course was a couple.. She'll be discharged home post operative day #2 in stable condition to follow-up with me in one week. She denies nausea, vomiting, chest pain, shortness of breath or calf pain. Her pain is controlled with the pain medication. She is tolerating regular diet and passing flatus, ambulating and voiding without difficulty. Plan - Discharge Summary New Discharge Prescriptions: New Ibuprofen [Motrin] 600 mg PO Q6HR PRN #30 tab PRN Reason: Mild Pain Or Fever >= 100.5 HYDROcodone/APAP 7.5-325MG [[place] 7.5-325] 1 each PO Q4H PRN #18 tab PRN Reason: Severe Pain No Action Pnv,Calcium 72/Iron/Folic Acid [ Plus Tablet] 1 each PO DAILY Discharge Medication List Pnv,Calcium 72/Iron/Folic Acid [ Plus Tablet] 1 each PO DAILY 08/20/18 [History] HYDROcodone/APAP 7.5-325MG [[place] 7.5-325] 1 each PO Q4H PRN #18 tab 11/25/18 [Rx] Ibuprofen [Motrin] 600 mg PO Q6HR PRN #30 tab 11/25/18 [Rx] Follow up Appointment(s)/Referral(s): Ileana Poe DO [Doctor of Osteopathic Medicine] - 1 Week Discharge Disposition: HOME SELF-CARE
[2018-11-25 12:18] VITALS: BP 106/69; PULSE 88; TEMP 98.1
[2018-11-25] MEDS ORDERED: ROPIVACAINE 100 MG, fentaNYL (PF) 200 MCG in SODIUM CHLORIDE 0.9% 76 ML EPIDURAL ONE (12:38)
== END 2018-11-25 15:42 | disposition home or self-care (01) | DRG 787 ==
LOC: FBPOP 19:55 → 4FBP 22:17
PROVIDERS: ADMIT Obstetrics & Gynecology; ATTEND Obstetrics & Gynecology
PROC: 00HU33Z Insertion of Infusion Device into Spinal Canal, Percutaneous Approach (ICD-10-PCS; 2018-11-22)
PROC: 3E0R3BZ Introduction of Anesthetic Agent into Spinal Canal, Percutaneous Approach (ICD-10-PCS; 2018-11-22)
PROC: 10D00Z1 Extraction of Products of Conception, Low, Open Approach (ICD-10-PCS; principal; 2018-11-23 11:44)
DX: O34.211 Maternal care for low transverse scar from previous cesarean delivery (principal); O99.354 Diseases of the nervous system complicating childbirth; O62.0 Primary inadequate contractions; N85.8 Other specified noninflammatory disorders of uterus; Z3A.38 38 weeks gestation of pregnancy; Z37.0 Single live birth; G40.909 Epilepsy, unspecified, not intractable, without status epilepticus; G47.30 Sleep apnea, unspecified; G89.29 Other chronic pain; M54.9 Dorsalgia, unspecified; M79.7 Fibromyalgia; G43.909 Migraine, unspecified, not intractable, without status migrainosus; Z79.899 Other long term (current) drug therapy; Z99.89 Dependence on other enabling machines and devices; Z98.1 Arthrodesis status; Z86.59 Personal history of other mental and behavioral disorders
CPT/HCPCS: 59025; 84112; 85025; 86850; 86900; 86901; 88307; 90686; 90707; 90715; 99213